=== PATIENT | female | born 1990 | race Caucasian/White ===

== ENCOUNTER 2018-05-10 09:47 | Emergency (ER) | payer MEDICAID, OTHER ==
[~2018-05-10] VITALS: Ht 185.4 cm; Wt 172.0 kg
[2018-05-10 09:50] VITALS: BP 166/93
== END 2018-05-10 10:31 | disposition home or self-care (01) ==
LOC: ER 09:48
DX: J02.9 Acute pharyngitis, unspecified (principal); L53.8 Other specified erythematous conditions; G89.29 Other chronic pain; F12.90 Cannabis use, unspecified, uncomplicated; Z56.0 Unemployment, unspecified; Z90.89 Acquired absence of other organs
CPT/HCPCS: 99281

== ENCOUNTER 2018-05-15 14:37 | Emergency (ER) | payer MEDICAID, OTHER ==
[~2018-05-15] VITALS: Ht 185.4 cm; Wt 202.8 kg
--- NOTE | 2018-05-15 16:18 | NUR ---
pt is 27 yo female c/o bilateral feet pain and swelling, no recent trauma, amb with steady gait to T2, pt had positive home test 05/02, confirmed by [facility], has 1st OB appt on Friday, unk LMP as pt states she doesn't have regular periods, control removed recently, pt is ,
[2018-05-15 16:58] VITALS: BP 138/79
== END 2018-05-15 16:59 | disposition home or self-care (01) ==
LOC: ER 14:37
DX: O26.891 Other specified pregnancy related conditions, first trimester (principal); R60.0 Localized edema; G89.29 Other chronic pain; F12.90 Cannabis use, unspecified, uncomplicated; Z90.89 Acquired absence of other organs; Z56.0 Unemployment, unspecified; Z3A.01 Less than 8 weeks gestation of pregnancy
CPT/HCPCS: 99281

== ENCOUNTER 2020-06-28 14:57 | Emergency (ER) | payer BC, MEDICAID ==
[~2020-06-28] VITALS: Ht 185.4 cm; Wt 161.6 kg
[2020-06-28 15:15] VITALS: BP 143/77
[2020-06-28 15:49] LABS: BASOPHILS % (AUTO) 0.4 % (0-1); EOSINOPHILS # (AUTO) 0.1 X10'3 (0-0.9); EOSINOPHILS % (AUTO) 1.2 % (0-6); HEMATOCRIT 41.3 % (35.0-45.0); HEMOGLOBIN 13.9 g/dl (12.0-16.0); LYMPHOCYTES # (AUTO) 2.2 X10'3 (1.1-4.8); LYMPHOCYTES % (AUTO) 28.3 % (21-51); MEAN CORPUSCULAR HEMOGLOBIN 29.6 PG (27.0-31.0); MEAN CORPUSCULAR HGB CONC 33.7 g/dL (33.0-36.5); MEAN CORPUSCULAR VOLUME 87.8 FL (78-98); MEAN PLATELET VOLUME 8.6 FL (7.4-10.4); MONOCYTES # (AUTO) 0.4 X10'3 (0-0.9); NEUTROPHILS # (AUTO) 5.2 X10'3 (1.8-7.7); NEUTROPHILS % (AUTO) 65.1 % (42-75); PLATELET COUNT 264 X10'3 (140-440); RED BLOOD COUNT 4.71 X10'6 (4.20-5.60); RED CELL DISTRIBUTION WIDTH 14.2 % (11.5-14.5); WHITE BLOOD COUNT 7.9 X10'3 (4.5-11.0)
[2020-06-28 15:59] LABS: ALANINE AMINOTRANSFERASE 65 U/L (12-78); ALBUMIN 3.8 G/DL (3.4-5.0); ALKALINE PHOSPHATASE 56 IU/L (46-116); ANION GAP 8 (8-16); ASPARTATE AMINO TRANSFERASE 55 U/L (10-37); BILIRUBIN,TOTAL 1.4 MG/DL (0.1-1.0); BLOOD UREA NITROGEN 7 MG/DL (7-18); BUN/CREATININE RATIO 10.1 (6.6-38.0); CALCIUM 9.8 MG/DL (8.5-10.1); CHLORIDE 106 MMOL/L (99-107); CREATININE 0.69 MG/DL (0.40-0.90); GLUCOSE 87 MG/DL (70-104); POTASSIUM 3.8 MMOL/L (3.5-5.1); SODIUM 144 MMOL/L (135-145); TOTAL CARBON DIOXIDE 30.5 MMOL/L (24-32); TOTAL PROTEIN 7.7 G/DL (6.4-8.2); eGFR > 90 ML/MIN
[2020-06-28 16:15] LABS: URINE HCG NEGATIVE (NEG)
[2020-06-28 16:16] LABS: GLUCOSE, URINE NEGATIVE (Neg); KETONES,URINE 15 mg/dl (Neg); LEUKOCYTE ESTERASE ,URINE TRACE (Neg); NITRITES, URINE NEGATIVE (Neg); OCCULT BLOOD,URINE NEGATIVE (Neg); PROTEIN,URINE TRACE mg/dl (Neg)
[2020-06-28 16:19] LABS: CLARITY,URINE SLIGHTLY CLOUDY (Clear); COLOR,URINE DARK YELLOW (Yellow); UA COLLECTION TYPE CLN CATCH MIDSTREAM
[2020-06-28 16:23] LABS: BACTERIA,URINE 1+ /HPF (Neg); MUCUS STRANDS MANY /LPF (Neg); RBC,URINE NONE SEEN /HPF (0-2); SQUAMOUS EPITHELIAL CELL,UR MANY /LPF (FEW)
--- NOTE | 2020-06-28 16:24 | NUR ---
URINE REJECTED FOR CULTURE - NOT AN CC
[2020-06-28] MEDS ORDERED: normal saline 1000ml 1,000 ML IV ONE (18:50)
[2020-06-28] MEDS ORDERED: CEPH250T PO (18:53)
== END 2020-06-28 20:43 | disposition home or self-care (01) ==
LOC: ER 14:57
DX: N39.0 Urinary tract infection, site not specified (principal); E86.0 Dehydration; R42 Dizziness and giddiness; K90.9 Intestinal malabsorption, unspecified; G89.29 Other chronic pain; F12.90 Cannabis use, unspecified, uncomplicated; Z56.0 Unemployment, unspecified; Z79.2 Long term (current) use of antibiotics
CPT/HCPCS: 36415; 80053; 81001; 81025; 85025; 96360; 96361; 99283; J7030

== ENCOUNTER 2023-05-01 11:21 | Emergency (ER) | payer BC, MEDICAID ==
[~2023-05-01] VITALS: Ht 188 cm; Wt 144.4 kg
[2023-05-01 11:26] VITALS: BP 141/79; PULSE 91; RESP 16; TEMP 98; O2SAT 99
== END 2023-05-01 12:08 | disposition left against medical advice (07) ==
LOC: ER 11:21
DX: S61.012A Laceration without foreign body of left thumb without damage to nail, initial encounter (principal); X58.XXXA Exposure to other specified factors, initial encounter; Y93.89 Activity, other specified; Y92.89 Other specified places as the place of occurrence of the external cause; Y99.8 Other external cause status
CPT/HCPCS: 99281

== ENCOUNTER 2023-05-06 00:09 | Emergency (ER) | payer BC ==
[~2023-05-06] VITALS: Ht 188 cm; Wt 145.8 kg
[2023-05-06 00:42] VITALS: BP 123/81; PULSE 93; RESP 18; TEMP 97.4; O2SAT 98
== END 2023-05-06 02:54 | disposition left against medical advice (07) ==
LOC: ER 00:11
DX: S80.851A Superficial foreign body, right lower leg, initial encounter (principal); G89.29 Other chronic pain; M54.9 Dorsalgia, unspecified; F12.10 Cannabis abuse, uncomplicated; W54.0XXA Bitten by dog, initial encounter; Y93.89 Activity, other specified; Y92.89 Other specified places as the place of occurrence of the external cause; Y99.8 Other external cause status
CPT/HCPCS: 73590; 99283

== ENCOUNTER 2024-10-24 22:26 | Emergency (ER) | payer BC, MEDICAID ==
[~2024-10-24] VITALS: Ht 188 cm; Wt 139.7 kg
--- NOTE | 2024-10-24 23:07 | RADIOLOGY REPORT ---
CHEST RADIOGRAPH Indication: CHEST WALL PAIN Technique: Frontal and lateral view of the chest was obtained Comparison: None FINDINGS: Lines and Tubes: None Lungs: Clear Pleura: No effusion. No pneumothorax. Cardiomediastinal contours: Unremarkable Bones: Unremarkable IMPRESSION: 1. No evidence of acute disease.
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
[2024-10-24] MEDS ORDERED: HYDR-3973 PO (23:44)
[2024-10-24] MEDS: HYDROcodone/acetaminophen 10/325mg tab PO STA (23:45)
[2024-10-24 23:51] VITALS: BP 122/77; PULSE 90; RESP 18; TEMP 98.1; O2SAT 100
== END 2024-10-24 23:55 | disposition home or self-care (01) ==
LOC: ER 22:27
DX: R07.89 Other chest pain (principal); R07.81 Pleurodynia; Z90.89 Acquired absence of other organs; F12.90 Cannabis use, unspecified, uncomplicated
CPT/HCPCS: 71046; 99283